=== PATIENT | female | born 1985 | race American Indian/Alaskan Native ===

== ENCOUNTER 2017-09-16 20:31 | Emergency (ER) | payer SELFPAY ==
[2017-09-16 20:44] VITALS: BP 131/84
[2017-09-16 21:04] LABS: Basophils % (Auto) 0.5 % (0.0-1.8); Eosinophils # (Auto) 0.2 K/mm3 (0.0-0.4); Eosinophils % (Auto) 2.6 % (0.0-4.3); Hematocrit 32.8 % (30.3-42.9); Hemoglobin 10.6 gm/dl (10.1-14.3); Lymphocytes # (Auto) 2.4 K/mm3 (1.2-5.4); Lymphocytes % (Auto) 38.6 % (13.4-35.0); Mean Corpuscular HGB Conc 32 % (30-34); Mean Corpuscular Volume 79 fl (79-97); Monocytes # (Auto) 0.9 K/mm3 (0.0-0.8); Platelet Count 285 K/mm3 (140-440); Red Blood Count 4.15 M/mm3 (3.65-5.03); Red Cell Distribution Width 16.2 % (13.2-15.2)
[2017-09-16 21:07] LABS: Mean Corpuscular Hemoglobin 26 pg (28-32)
[2017-09-16 21:34] LABS: Alanine Aminotransferase 6 units/L (7-56); Albumin 3.8 g/dL (3.9-5); BUN/Creatinine Ratio 10; Blood Urea Nitrogen 8 mg/dL (7-17); Calcium 9.3 mg/dL (8.4-10.2); Hemolysis Index 26
--- NOTE | 2017-09-17 00:44 | Emergency Department Report ---
- General Chief Complaint: Pain General Stated Complaint: UMBILICAL INFECTION; S/P SX Time Seen by Provider: 09/17/17 00:30 Source: patient Mode of arrival: Ambulatory Limitations: No Limitations - History of Present Illness Initial Comments: Ms. Rojo is a 31 yo female who presents 5 weeks s/p tummy tuck and liposuction in the [facility] on August 12. She has had a persistent open wound at the umbilicus since the surgery. She was told by the surgeon that the opening will eventually close. She has irritation around the wound. -: Gradual, month(s) (1) Location: abdomen Context: other (plastic surgery) - Related Data Previous Rx's Medication Instructions Recorded Last Taken Type Cephalexin [Keflex] 500 mg PO Q6HR 7 Days #28 capsule 09/17/17 Unknown Rx Allergies Allergy/AdvReac Type Severity Reaction Status Date / Time No Known Allergies Allergy Verified 09/16/17 20:38 ED Review of Systems ROS: Stated complaint: UMBILICAL INFECTION; S/P SX Other details as noted in HPI Comment: All other systems reviewed and negative Constitutional: denies: fever, malaise Respiratory: denies: cough Cardiovascular: denies: chest pain ED Past Medical Hx - Past Medical History Previous Medical History?: No - Surgical History Past Surgical History?: Yes Additional Surgical History: c section - Social History Smoking Status: Never Smoker Substance Use Type: None - Medications Home Medications: Home Medications Medication Instructions Recorded Confirmed Last Taken Type Cephalexin [Keflex] 500 mg PO Q6HR 7 Days #28 capsule 09/17/17 Unknown Rx ED Physical Exam - General Limitations: No Limitations General appearance: alert, in no apparent distress - Head Head exam: Present: atraumatic, normocephalic - Eye Eye exam: Present: normal appearance - ENT ENT exam: Present: mucous membranes moist - Neck Neck exam: Present: normal inspection. Absent: tenderness, meningismus - Respiratory Respiratory exam: Present: normal lung sounds bilaterally. Absent: respiratory distress, wheezes, rales, rhonchi - Cardiovascular Cardiovascular Exam: Present: regular rate, normal rhythm, normal heart sounds. Absent: bradycardia, tachycardia, systolic murmur, diastolic murmur, rubs, gallop - GI/Abdominal GI/Abdominal exam: Present: soft, normal bowel sounds. Absent: distended, tenderness, guarding, rebound - Extremities Exam Extremities exam: Present: normal inspection - Back Exam Back exam: Present: normal inspection - Neurological Exam Neurological exam: Present: alert, oriented X3 - Psychiatric Psychiatric exam: Present: normal affect, normal mood - Skin Skin exam: Present: warm, dry, intact, normal color. Absent: rash - Other Other exam information: Postsurgical changes with indurated skin in the lower back bilaterally central 6 cm vertical wound 2 cm opening with ulceration, no purulence no erythema. scaly hyperpigmentation surrounding the wound ED Course Vital Signs 09/16/17 20:38 Temperature 99 F Pulse Rate 86 Respiratory 16 Rate Blood Pressure 131/84 O2 Sat by Pulse 96 Oximetry ED Medical Decision Making - Lab Data Result diagrams: 09/16/17 20:51 09/16/17 20:51 - Medical Decision Making Ms. Rojo presents with post surgical complication of plastic surgery. Unclear if wound dehisicence or expected post-surgical changes due to change in anatomy. I recommended f/u with surgeon. I gave referral to our surgeon on- call. I also recommended following up with a plastic surgeon. I have prescribed Keflex. I recommended OTC antibiotic ointment topical to skin. Critical care attestation.: If time is entered above; I have spent that time in minutes in the direct care of this critically ill patient, excluding procedure time. ED Disposition Clinical Impression: Post-operative state, Wound dehiscence, surgical Disposition: [id number] TO HOME OR SELFCARE Is pt being admited?: No Does the pt Need Aspirin: No Condition: Stable Instructions: Wound Dehiscence (ED) Additional Instructions: You will need to see a surgeon for wound care long-term. Please contact your plastic surgeon for instructions. Prescriptions: Cephalexin [Keflex] 500 mg PO Q6HR 7 Days #28 capsule Referrals: ADRIAN ANN MD [Staff Physician] - 3-5 Days Forms: Work/School Release Form(ED) Time of Disposition: 00:45
[2017-09-17] MEDS ORDERED: TRIPLE ANTIBIOTIC TP ONE ×2 (01:00→01:10)
== END 2017-09-17 01:05 | disposition home or self-care (01) ==
LOC: ED 20:31
DX: L76.82 Other postprocedural complications of skin and subcutaneous tissue (principal); T81.30XA Disruption of wound, unspecified, initial encounter
CPT/HCPCS: 36415; 80053; 85025; 99283; A6250